=== PATIENT | female | born 1980 | race Caucasian/White ===

== ENCOUNTER 2018-03-06 20:12 | Emergency (ER) | payer MEDICAID, SELFPAY ==
[2018-03-06 20:13] VITALS: BP 105/68; PULSE 88; RESP 15; TEMP 36.6; BMI 21.1
--- NOTE | 2018-03-06 21:14 | ED.DCSUM_ITS ---
- ER Visit Summary Date of Service: 03/06/18 Chief Complaint: Left index finger laceration History of Present Illness: The patient is a 37 F who presents for laceration to left index finger. Patient was using a knife to tighten the screw around 6:00 this morning and cut her left index finger. Tetanus is up-to-date. She is right-hand dominant. She denies any paresthesias. Injury occurred 14 hours prior to her evaluation in the emergency room. Physical Examination: Vital signs unremarkable. Patient sitting upright in bed no acute distress. Left upper extremity examination was a 1.5 similar laceration to the distal left index finger along the radial side of the DIP joint. She has full range of motion and normal sensation distally, including two-point discrimination. Normal cap refill is noted. Test Results: [] Emergency Department Course and Treatment: Wound is cleansed. Because the wound is greater than 12 hours old it is not sutured. Dressing is applied and she is placed in an AlumaFoam splint to wear for the next 2 days to allow initial healing. Treatment Plan: [] Disposition: Discharge Impression: Left index finger laceration, old-not sutured This note was generated with [employer] dictation software. It may contain incorrect words, spelling, and punctuation that were not noted in review of the chart prior to signing ED Disposition - Plan for ED Patient: Chief Complaint: Laceration Referrals: Bravo Dixon [Primary Care Provider] -
--- NOTE | 2018-03-06 21:14 | ED.DEP ---
ED Disposition - Plan for ED Patient: Disposition: Home or Assisted Living Chief Complaint: Laceration Instructions: ED Laceration Old Not Sutr Referrals: Bravo Dixon [Primary Care Provider] - As Needed
== END 2018-03-06 21:27 | disposition home or self-care (01) ==
PROVIDERS: Emergency Provider Emergency Medicine; Family Provider Internal Medicine; PCP Internal Medicine
DX: S61.211A Laceration without foreign body of left index finger without damage to nail, initial encounter (principal); W26.0XXA Contact with knife, initial encounter; Y93.9 Activity, unspecified; Y92.9 Unspecified place or not applicable; M79.7 Fibromyalgia; Z79.899 Other long term (current) drug therapy
CPT/HCPCS: 99282